=== PATIENT | female | born 1965 | race Caucasian/White ===

== ENCOUNTER 2018-12-31 17:16 | Outpatient (CLI) | payer OTHER | END 2018-12-31 21:24 | disposition home or self-care (01) | LOC: SRD 17:16 | PROVIDERS: ATTEND Internal Medicine | DX: M25.551 Pain in right hip (principal) | CPT/HCPCS: 73502 ==

== ENCOUNTER 2023-07-16 12:20 | Emergency (ER) | payer OTHER ==
[~2023-07-16] VITALS: Ht 170.2 cm; Wt 64.9 kg
[~2023-07-16 12:20] MED LIST: FLUORESCEIN SODIUM 1 MG OPHTHALMIC STRIP OP ONE; PROPARACAINE (OPTHANINE 0.5%) 15 ML DROPS OP ONE
[2023-07-16 12:38] VITALS: BP_SYST 135; PULSE 86; RESP 20; TEMP 97.8; O2SAT 98
[2023-07-16] MEDS ORDERED: FLOEARD EACH EYE (12:48)
[2023-07-16] MEDS ORDERED: TRAM50TA2 PO (12:48)
[2023-07-16 16:07] VITALS: BP_SYST 135; PULSE 86; RESP 20; TEMP 97.8; O2SAT 98
== END 2023-07-16 12:45 | disposition home or self-care (01) ==
LOC: SED 12:20
DX: S05.02XA Injury of conjunctiva and corneal abrasion without foreign body, left eye, initial encounter (principal); Z79.899 Other long term (current) drug therapy; X58.XXXA Exposure to other specified factors, initial encounter; Y93.89 Activity, other specified; Y92.89 Other specified places as the place of occurrence of the external cause; Y99.8 Other external cause status
CPT/HCPCS: 99283